=== PATIENT | male | born 1940 | race Caucasian/White ===

== ENCOUNTER 2016-11-06 13:10 | Emergency (ER) | payer MEDICARE, MEDICAID ==
[~2016-11-06] VITALS: Ht 172.7 cm; Wt 99.8 kg
[~2016-11-06 13:10] MED LIST: ACIPHEX 20 MG T20 MG PO; ACTOPLUS MET 501 TAB PO; ACTOPLUS MET 851 TAB PO; CHEWABLE ASPIRI81 M1 PO; CLEOCIN HCL300 MG PO; CLONIDINE HCL0.1 M1 PO; CLONIDINE HYDR0.1 MG PO; DIOVAN320 MG PO; FERROCITE PLUS1 TAB PO; FERROCITE324 MG PO; FUROSEMIDE40 MG PO; GLIMEPIRIDE 4MG4 MG PO; JANUMET 1000 MG1 TAB PO; KLOR-CON 1010 MEQ PO; LEVEMIR FLEX100 U/ML SC; LEVOTHYROXINE0.05 MG PO; LIPITOR10 MG PO; LORTAB 5/500 501 TAB PO; LOVAZA1 GM PO; METOPROLOL50 MG PO; PANTOPRAZOLE SO40 M1 PO; PANTOPRAZOLE40 M1 PO; PIOGLITAZONE HC30 M1 PO; POTASSIUM CHLO10 MEQ PO; PREPARATION H 01 OIN TP; PROTONIX 40MG T40 MG PO; TESSALON PERLE100 M1 PO; TOPROL XL 50MG50 MG PO; TORSEMIDE 20MG20 MG PO; TORSEMIDE20 MG PO; TRADJENTA5 MG PO; TRAMADOL50 M1 PO; TRILIPIX45 MG PO; VITAMIN B650 MG PO; VITAMIN D50000 I1 PO; [UNRECOGNIZED DRUG - CODE] PO
--- NOTE | 2016-11-06 13:25 | Emergency Room Report ---
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 Clinical Suspician of Infection? Mental Status: Sepsis Risk: Have you (or family members/close friends) recently traveled outside the [place]? If Yes, where/when: Have you had exposure to infectious disease within the past month? TB? Other? 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 Given D50 on arrival to ED. No complaints now. Lives alone; has known DM; similar episode several days ago. ALLERGIES Coded Allergies: penicillin G (11/06/16) Home Medications Active Scripts TRAMADOL HCL (Tramadol) 50 MG PO Q4HP PRN MODERATE TO SEVERE PAIN #30 TAB Prov: 09/12/16 Reported Medications Atorvastatin Calcium (Lipitor 10MG) 10 MG PO QHS Metoprolol Tartrate (Metoprolol) 25 MG OR BID OMEGA-3 ACID ETHYL ESTERS (Lovaza) 2 TAB PO BID Levothyroxine Sodium (Levothyroxine) 0.05 MG NG DAILY Insulin Detemir (Levemir Flextouch) 30 UNITS SC QHS #27 ML TORSEMIDE (TORSEMIDE 20MG) 40 MG PO DAILY Ferrous Fumarate (Ferrocite) 324 MG PO DAILY FENOFIBRIC ACID (CHOLINE) (Trilipix) 135 MG PO DAILY Aspirin (Chewable Aspirin) 81 MG PO DAILY Potassium Chloride (Klor-Con) 10 MEQ PO DAILY CLONIDINE HCL (Clonidine 0.1MG) 0.1 MG PO BID #180 Pantoprazole Sodium 40 MG PO DAILY #30 PIOGLITAZONE HCL (Pioglitazone HCl) 30 MG PO DAILY #30 Linagliptin (Tradjenta) 5 MG PO DAILY #30 ERGOCALCIFEROL (VITAMIN D2) (Vitamin D2) 50,000 IUNITS PO WEEKLY History Medical History General CAD? Yes Angina: Yes [place]: Yes Hypertension? Yes Hyperlipidemia? Yes CHF? Yes COPD? No Asthma? No Anemia? Yes GERD? Yes Gastric ulcers? No GI Bleed? No Hernia? No Thyroid Problems? Yes Hypothyroidism? Yes CVA? No Seizures? No Diabetes? Yes Insulin Dependent: Yes Insulin Pump: No Home FSBS? Yes Renal Insuffiency? Yes UTI? No Stones? Yes GB Disease: Yes Nephritic Syndrome? No Asplenia? No Hepatitis? No Sickle Cell Disease? No Cataracts? No Glaucoma? No MRSA? No TB? No Cancer? No Immunization Hx DT/Tetanus 1-4 YRS Flu 2015-FSN Pneumonia Received In Past Surgical Hx Previous Surgery?Y CABG COLONOSCOPY EGD. GALL BLADDER Family History Family Hx Diabetes Yes CAD Yes Hypertension Yes Hyperlipidemia Yes Cancer No TB No Social History Smoking Hx Packs/day N/A Alcohol Alcohol: No Review of Systems All Other Systems Reviewed and Negative Psychiatric/Neurological see HPI Physical Exam Vital Signs Vital Signs Date Time Temp Pulse Resp B/P Pulse O2 O2 Flow FiO2 Ox Delivery Rate 11/06 1445 68 18 190/91 95 11/06 1312 97.7 66 14 148/70 99 General Appearance normal appearance, WD/WN, no apparent distress Eye Exam - bilateral eye normal exam, bilateral eye PERRL Neck normal inspection, non-tender, supple, full range of motion Respiratory Status Yes: trachea midline, chest symmetrical, non tender chest. No: respiratory distress, tender on palpation, use of accessory muscles, pain on inspiration, pain on expiration, productive cough, non productive cough. Lung Sounds bilateral: normal breath sounds, lungs clear. 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 No Results/Orders Laboratory Tests 11/06/16 1405: Sodium 138, Potassium 3.3 L, Chloride 102, Carbon Dioxide 27, BUN 15, Creatinine 1.6 H, Estimated Creat Clear 55, Estimated GFR (MDRD) 42, Glucose 161 H, Calcium 8.7, Lipase 173, WBC 8.7, RBC 3.48 L, Hgb 10.4 L, Hct 32.8 L, MCV 94.1, RDW 15.4, Plt Count 206, MPV 9.8, Gran % 82.5 H, Gran # 7.2, Lymphocytes % 10.8, Monocytes % 5.2, Eosinophils % 0.8, Basophils % 0.7, Lymphocytes # 0.9, Monocytes # 0.5, Eosinophils # 0.1, Basophils # 0.1, PUBS MCHC 32.0, MCH 30.1 11/06/16 1352: Urine Color YELLOW, Urine Appearance CLEAR, Urine pH 6.0, Ur Specific [place] 1.010, Urine Protein NEGATIVE, Urine Ketones NEGATIVE, Urine Blood TRACE-INTACT, Urine Nitrate NEGATIVE, Urine Bilirubin NEGATIVE, Urine Urobilinogen 0.2, Ur Leukocyte Esterase NEGATIVE, Urine RBC OCC, Urine WBC OCC, Ur Squamous Epith Cells NONE, Urine Bacteria 2+, Urine Glucose NEGATIVE Current Medication Orders Sig/Bong Start time Last Medication Dose Route Stop Time Status Admin Dextrose 50 ML ONCE ONE 11/06 1345 DC 11/06 IVP 11/06 1346 1316 Dextrose 50 ML ONE 11/06 1330 CAN IV 11/06 1331 Sodium Chloride 10 ML PRN PRN 11/06 1330 AC IV 11/07 1330 Orders Procedure Date/time Status CULTURE, URINE 11/06 1352 Active IV SALINE LOCK 11/06 1330 Active GUEST TRAY 11/06 1326 Active URINALYSIS/COMPLETE 11/06 1326 Complete LIPASE 11/06 1326 Complete CBC WITH AUTO DIFF 11/06 1326 Complete BASIC METABOLIC PROFILE 11/06 1326 Complete Consult MD Physician Consult 1 Consult/PCP care management consult to assure family/friend will check on patient Physician Consult 2 Time Called 1449 Reason Pt. Condition Progress ED Progress Notes 1 Date 11/06/16 Time 1357 Comment Patient arrived s/p glucagon initiated by EMS, was initially slightly obtunded but immediately alert with normal neurological exam after D50 given by staff on arrival to ED. No complaints. ED Progress Notes 2 Date 11/06/16 Time 1357 Comment Patient states took his medication this morning and didn't eat breakfast. States he has food in the house. I have asked staff to locate friend to agree to check on him each morning to make sure he is eating and doing well. He is alert now with no complaints. ED Progress Notes 3 Date 11/06/16 Time 1454 Comment I spoke with Dr. Cartwright, who states patient can be worked in to see Dr. Madison in [place] tomorrow if family so desires; brother is satisfied with that recommendation and will call for appointment; patient alert and eating; care management working on finding sitters until placement issue resolved. Departure Departure Time of Disposition [id number] Disposition DC Home or Self Care(routine) Clinical Impression Primary Impression: Hypoglycemia associated with diabetes Condition STABLE Referrals Haim Madison MD (Family) Patient Instructions Hypoglycemia Additional Instructions Recommend high protein snacks, eat high protein meal prior to taking morning medications, call Dr. Madison's office for an appointment tomorrow in [place]. Discharge Counseling Counseled pt/family regarding diagnosis, test results, home care, follow up needs ED Critical Care Critical Care Yes Time spent < 30 min Vital system(s) involved: Circulatory Failure (hypoglycemia) I was present at bedside for Coordinating pt's care, During my initial exam, Reviewing lab results, Reviewing old records, Discussing pt condition, For re- examinations (consults; d/w family (multiple) at 1985
[2016-11-06 13:56] LABS: URINE BILIRUBIN - DIPSTICK NEGATIVE (NEG); URINE BLOOD TRACE-INTACT (NEG)
[2016-11-06 14:11] LABS: LYMPH # 0.9 K/mm3 (0.7-4.5); LYMPH % 10.8 % (10-50)
[2016-11-06 14:12] LABS: HEMOGLOBIN 10.4 g/dL (14.1-18.0)
[2016-11-06 15:10] VITALS: BP 166/75
[2016-11-21] MEDS ORDERED: LIPITOR40 MG PO (00:48)
[2016-11-21] MEDS ORDERED: TORSEMIDE 20MG20 MG PO (00:53)
[2016-11-21] MEDS ORDERED: MIRALAX17 GM/PACK PO (00:53)
[2016-11-21] MEDS ORDERED: METAMUCIL PACK3.4 GM PO (00:54)
[2016-11-21] MEDS ORDERED: FERROUS SULFAT200 M1 PO (09:06)
[2016-12-12] MEDS ORDERED: LEVAQUIN500 MG PO (08:43)
[2017-01-01] MEDS ORDERED: ALDACTONE 25MG25 MG PO (08:41)
[2017-01-01] MEDS ORDERED: ACETAMINOPHEN500 M3 PO (08:43)
[2017-01-01] MEDS ORDERED: FERROUS SULFAT325 M2 PO (08:51)
[2017-01-04] MEDS ORDERED: INVANZ 1 GM1 GM IV (10:52)
[2017-01-16] MEDS ORDERED: FERROUS SULFAT200 M1 PO (12:29)
[2017-01-16] MEDS ORDERED: LACTULOSE10 GM/15 M PO (12:30)
[2017-01-16] MEDS ORDERED: SPIRONOLACTONE25 MG NG (12:31)
[2017-01-16] MEDS ORDERED: TORSEMIDE 20MG20 MG PO (12:32)
[2017-01-16] MEDS ORDERED: VITAMIN D50000 I1 PO (12:33)
[2017-01-16] MEDS ORDERED: MYCAMINE100 MG IV (12:36)
== END 2016-11-06 15:30 | disposition home or self-care (01) ==
LOC: ER 13:10
PROVIDERS: Emergency Medicine
DX: E11.649 Type 2 diabetes mellitus with hypoglycemia without coma (principal); E11.65 Type 2 diabetes mellitus with hyperglycemia; Z79.4 Long term (current) use of insulin; I10 Essential (primary) hypertension; K21.9 Gastro-esophageal reflux disease without esophagitis; I25.10 Atherosclerotic heart disease of native coronary artery without angina pectoris

== ENCOUNTER 2016-12-01 19:41 | Emergency (ER) | payer MEDICARE, MEDICAID ==
[~2016-12-01] VITALS: Ht 172.7 cm; Wt 112.0 kg
[~2016-12-01 19:41] MED LIST changes: +FERROUS SULFAT200 M1 PO; +LIPITOR40 MG PO; +METAMUCIL PACK3.4 GM PO; +MIRALAX17 GM/PACK PO
[2016-12-01 20:26] LABS: LYMPH # 1.7 K/mm3 (0.7-4.5)
--- NOTE | 2016-12-01 20:31 | Emergency Room Report ---
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 N Clinical Suspician of Infection? N Mental Status: 1 - Regular (Normal Baseline) Sepsis Risk:Low Sepsis Risk Have you (or family members/close friends) recently traveled outside the [place]? N If Yes, where/when: Have you had exposure to infectious disease within the past month? N TB? Other? Specify: Source patient, RN notes reviewed, family, old records Exam Limitations no limitations Comment lower abd pain with no fever or vomiting does have dark stool but has fe treatment - no chest pain Cardiac Chest Pain Chest pain indicative of cardiac No Timing/Duration this evening Severity moderate ALLERGIES Coded Allergies: penicillin G (UNKNOWN 11/21/16) Home Medications Active Scripts Ferrous Sulfate 200 MG PO BID #60 TAB Ref 2 Prov: 11/21/16 Reported Medications OMEGA-3 ACID ETHYL ESTERS (Lovaza) 2 TAB PO BID TORSEMIDE (TORSEMIDE 20MG) 40 MG PO DAILY FENOFIBRIC ACID (CHOLINE) (Trilipix) 135 MG PO DAILY Aspirin (Chewable Aspirin) 81 MG PO DAILY Potassium Chloride (Klor-Con) 10 MEQ PO DAILY CLONIDINE HCL (Clonidine 0.1MG) 0.1 MG PO BID #180 Pantoprazole Sodium 40 MG PO DAILY #30 PIOGLITAZONE HCL (Pioglitazone HCl) 30 MG PO DAILY #30 Linagliptin (Tradjenta) 5 MG PO DAILY #30 ERGOCALCIFEROL (VITAMIN D2) (Vitamin D2) 50,000 IUNITS PO WEEKLY Levothyroxine Sodium (Levothyroxine) 0.05 MG PO DAILY Insulin Detemir (Levemir Flextouch) 20 UNITS SC QHS #27 ML Metoprolol Tartrate (Metoprolol) 50 MG OR BID Atorvastatin Calcium (Atorvastatin) 20 MG PO QHS TORSEMIDE (Torsemide 20MG) 20 MG PO QHS Polyethylene Glycol 3350 (Miralax) 17 GM PO DAILY Psyllium Husk (With Sugar) (Metamucil Packet) 3.4 GM PO DAILY History Medical History General CAD? Yes Angina: Yes [place]: Yes Hypertension? Yes Hyperlipidemia? Yes CHF? Yes DVT? No PE? No COPD? No Asthma? No Anemia? Yes GERD? Yes Gastric ulcers? No GI Bleed? No Hernia? No Thyroid Problems? Yes Hypothyroidism? Yes CVA? No Seizures? No Diabetes? Yes Insulin Dependent: Yes Insulin Pump: No Home FSBS? Yes Renal Insuffiency? Yes End Stage Renal Disease? No UTI? No Stones? Yes BPH? No GB Disease: Yes Nephritic Syndrome? No Asplenia? No Hepatitis? No Sickle Cell Disease? No Arthritis? No Migraines? No Cataracts? No Glaucoma? No MRSA? No HIV? No TB? No Anxiety? No Depression? No Cancer? No More? No Immunization Hx DT/Tetanus 1-4 YRS Flu 2015-FSN Pneumonia Received In Past Surgical Hx Previous Surgery?Y CABG COLONOSCOPY EGD. GALL BLADDER Family History Family Hx Diabetes Yes CAD Yes Hypertension Yes Hyperlipidemia Yes Cancer No TB No Social History Smoking Hx Smoker: Never Smoker Tobacco: No Packs/day N/A Alcohol Alcohol: No Drugs none Additionial History Additional History has hx of pancreas issues in past Review of Systems All Other Systems Reviewed and Negative Constitutional denies fever Eyes denies drainage ENT denies: ear pain, epistaxis, throat pain. Respiratory denies cough, denies shortness of breath, denies wheezing Cardiovascular denies chest pain, denies syncope Gastrointestinal see HPI, abdominal pain, denies diarrhea, nausea, denies vomiting Genitourinary denies: dysuria, frequency, hesitancy, hematuria. Musculoskeletal denies back pain, denies joint pain, denies joint swelling, denies neck pain Skin denies rash Psychiatric/Neurological denies headache, denies seizure Physical Exam Vital Signs Vital Signs Date Time Temp Pulse Resp B/P Pulse O2 O2 Flow FiO2 Ox Delivery Rate 12/01 2352 75 20 132/54 98 12/018 61 18 131/50 98 12/01 2122 62 18 166/80 98 12/01 2046 63 18 147/64 97 12/01 1948 98.2 66 18 199/93 98 12/01 1944 98.2 66 18 199/93 98 - WBC >12,000 or <4,000 or 10% bands? 2 or more SIRS Criteria Met? B/P:132/54 MAP:128 Creatinine >2.0? UA output<0.5ml/kg/hr for 2 hrs? Platelet count >100,000? Lactate >2.0mmol/1? INR >1.2 or PTT > than 60 sec? Evidence of Organ Dysfunction? Provider documented clinical suspician of infection? N Sepsis Criteria Count: 0 Sepsis Risk: Low Sepsis Risk General Appearance no apparent distress Eye Exam - bilateral eye PERRL, bilateral eye EOMI Ear, Nose, Throat normal ENT inspection Neck supple Respiratory Status No: respiratory distress. Lung Sounds bilateral: decreased breath sounds. Cardiovascular regular rate/rhythm, systolic murmur Peripheral Pulses Pulses normal Yes Gastrointestinal soft, no organomegaly, no pulsatile mass, no guarding, no rebound, tenderness Back no CVA tenderness Extremities normal inspection Strength 4 Upper Ext (L), 4 Upper Ext (R), 4 Lower Ext (L), 4 Lower Ext (R) Rectal normal rectal tone, black stool, heme positive stool Nurse present during exam? 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 No Results/Orders Laboratory Tests 12/02/16 0010: Stool Occult Blood POSITIVE 12/01/16 2230: Lactic Acid 1.3 12/01/162119: Urine Color YELLOW, Urine Appearance CLEAR, Urine pH 5.5, Ur Specific [place] 1.025, Urine Protein NEGATIVE, Urine Ketones NEGATIVE, Urine Blood TRACE-INTACT, Urine Nitrate NEGATIVE, Urine Bilirubin NEGATIVE, Urine Urobilinogen 0.2, Ur Leukocyte Esterase NEGATIVE, Urine RBC 3-5, Urine WBC OCC, Amorphous Sediment TRACE, Urine Glucose NEGATIVE 12/01/162009: Creatine Kinase 34 L, CK-MB (CK-2) Rel Index 1.5, CK and CKMB Interp < 0.5, Troponin I < 0.02 12/01/16 2010: Sodium 138, Potassium 3.6, Chloride 101, Carbon Dioxide 31, BUN 26 H, Creatinine 1.5 H, Estimated Creat Clear 66, Estimated GFR (MDRD) 46, Glucose 190 H, Calcium 9.5, Total Bilirubin 1.0, AST 37, ALT 18, Alkaline Phosphatase 76, Total Protein 7.9, Albumin 2.4 L, Globulin 5.5 H, Albumin/Globulin Ratio 0.4 L, Amylase 46, Lipase 252, WBC 6.9, RBC 3.65 L, Hgb 12.0 L, Hct 34.7 L, MCV 94.9, RDW 16.0, Plt Count 231, MPV 7.8, Gran % 66.5, Gran # 4.6, Lymphocytes % 24.0, Monocytes % 4.6, Eosinophils % 3.7, Basophils % 1.2, Lymphocytes # 1.7, Monocytes # 0.3, Eosinophils # 0.3, Basophils # 0.1, PUBS MCHC 34.6, MCH 32.8 H Current Medication Orders Sig/Bong Start time Last Medication Dose Route Stop Time Status Admin Sodium Chloride 1,000 ML .STK-MED ONE 12/01 2039 DC IV Sodium Chloride 10 ML PRN PRN 12/01 1999 AC IV 12/02 1956 Sodium Chloride 1,000 ML .Q1H1M 12/01 1999 DC 12/01 IV 12/01 Sodium Chloride 10 ML PRN PRN 12/01 1999 AC IV 12/02 1957 Orders Procedure Date/time Status DIET-NOTHING BY MOUTH 12/02 B Active STOOL OCCULT BLOOD 12/01 2221 Complete LACTIC ACID 12/01 2221 Complete CARDIAC ENZYMES 12/[address] ABD & PELVIS W/O CONTRAST 12/01 2014 Active URINALYSIS/COMPLETE 12/[address] ABD/PELVIS REQ 12/01 1958 Active IV SALINE LOCK 12/01 1958 Active LIPASE 12/01 1958 Complete CBC WITH AUTO DIFF 12/01 1958 Complete CHEM 12 PROFILE 12/01 1958 Complete AMYLASE 12/01 1958 Complete XRAY/CT/US XRAY/CT/US CT abdomen, pelvis CT interpretation by discussed w/radiologist Time results known: 0002 CT Results abnormal (see report) Departure Departure Time of Disposition 0002 Disposition DC Home or Self Care(routine) Clinical Impression Primary Impression: Abdominal pain Qualifiers: Abdominal location: unspecified location Qualified Code: R10.9 - Unspecified abdominal pain Secondary Impressions: Positive occult stool blood test, Renal insufficiency Condition STABLE Patient Instructions DI for Abdominal Pain-Adult Additional Instructions see pcp for follow up and more eval of abd pain Discharge Counseling Counseled pt/family regarding diagnosis, test results, medications/RX, follow up needs ED Critical Care Critical Care No at 0035
[2016-12-01 21:26] LABS: URINE BILIRUBIN - DIPSTICK NEGATIVE (NEG); URINE BLOOD TRACE-INTACT (NEG)
[2016-12-02 00:19] LABS: STOOL OCCULT BLOOD POSITIVE (NEG)
[2016-12-02 00:55] VITALS: BP 141/53
--- NOTE | 2016-12-02 06:39 | RADIOLOGY REPORT PS360 ---
CT ABD PELVIS W/O CONTRAST CLINICAL INDICATION: Generalized abdominal pain ABDOMINAL PAIN ORDERING PHYSICIAN: Marlen Martinez MD PATIENT AGE: 76 years COMPARISON: 10/05/2016 TECHNIQUE: Axial images obtained with sagittal and coronal reformats. PROCEDURE: Oral Contrast: None IV Contrast: None . FINDINGS: Study is limited without IV and oral contrast especially with evaluation of the pancreas abnormalities that were previously noted. Lower thorax: Mild cardiomegaly with coronary artery calcification ABDOMEN: Liver: Liver has a somewhat irregular appearance which may be seen with cirrhosis Gallbladder: Cholecystectomy. No ductal dilatation Pancreas: Trace inflammatory change around the pancreatic head as before. Small amount bubbles of gas once again noted in the pancreatic neck. Tiny air-fluid level posterior to the body the pancreas. Spleen: Unremarkable. Adrenals: Unremarkable Kidneys/ureters: Atrophic right kidney. No hydronephrosis Stomach bowel: Duodenal diverticulum Appendix: No evidence of appendicitis. PELVIS: Reproductive: Unremarkable Bladder: Nondistended. No obvious stones or masses. ABDOMEN & PELVIS: Peritoneum: No abnormal fluid collections. No obvious inflammatory changes. No free air. Lymph nodes: No enlarged lymph nodes apparent. Vasculature: Mild dilatation of the common iliac arteries. Stable infrarenal abdominal aortic aneurysm at 2.6 cm. Prominent perigastric vessels which may be due to developing varices. Bones: No acute fracture IMPRESSION: 1. Persistent inflammatory changes around the pancreas suggesting pancreatitis. 2. Small amount gas once again noted along the pancreatic neck with fluid collection and may be related to sterile versus infected pseudocyst. 3. Suspect cirrhosis with developing varices and perigastric region
[2016-12-12] MEDS ORDERED: LEVAQUIN500 MG PO (08:43)
[2017-01-01] MEDS ORDERED: ALDACTONE 25MG25 MG PO (08:41)
[2017-01-01] MEDS ORDERED: ACETAMINOPHEN500 M3 PO (08:43)
[2017-01-01] MEDS ORDERED: FERROUS SULFAT325 M2 PO (08:51)
[2017-01-04] MEDS ORDERED: INVANZ 1 GM1 GM IV (10:52)
[2017-01-16] MEDS ORDERED: FERROUS SULFAT200 M1 PO (12:29)
[2017-01-16] MEDS ORDERED: LACTULOSE10 GM/15 M PO (12:30)
[2017-01-16] MEDS ORDERED: SPIRONOLACTONE25 MG NG (12:31)
[2017-01-16] MEDS ORDERED: TORSEMIDE 20MG20 MG PO (12:32)
[2017-01-16] MEDS ORDERED: VITAMIN D50000 I1 PO (12:33)
[2017-01-16] MEDS ORDERED: MYCAMINE100 MG IV (12:36)
== END 2016-12-02 00:56 | disposition home or self-care (01) ==
LOC: ER 19:41
PROVIDERS: Emergency Medicine; General Practice
DX: R10.30 Lower abdominal pain, unspecified (principal); I25.10 Atherosclerotic heart disease of native coronary artery without angina pectoris; I10 Essential (primary) hypertension; K21.9 Gastro-esophageal reflux disease without esophagitis; E11.65 Type 2 diabetes mellitus with hyperglycemia; Z79.4 Long term (current) use of insulin

== ENCOUNTER → 2017-07-22 | Outpatient (CLI) | payer MEDICARE, MEDICAID ==
[2017-07-22 10:55] LABS: BUN 7 mg/dL (7-18)
[2017-07-22 11:13] LABS: GFR (ESTIMATED) 73 ML/MIN (>60)
== END ==
LOC: LAB 09:33
PROVIDERS: Nurse Practitioner Acute Care
DX: N17.9 Acute kidney failure, unspecified (principal)